=== PATIENT | female | born 2000 | race Caucasian/White ===

== ENCOUNTER 2025-06-07 11:52 | Observation (INO) | payer MEDICAID ==
[2025-06-07] MEDS ORDERED: PREN-96 PO (13:11)
--- NOTE | 2025-06-08 11:37 | DVHDS2 ---
Discharge Summary Date of Admission Jun 07, 2025 at 11:52 Date of Discharge: Jun 07, 2025 Admitting Diagnosis 37-5/7 week rule out ruptured membranes Wounds: None Labs/Diagnostic Data: Laboratory Results Test 06/07/25 12:25 Placental Alnqb-9-Bernsmxskxwgn Negative Brief Hx & Hospital Course: Patient NST BPP are reassuring no evidence of spontaneous rupture membranes Operations or Procedures NST BPP Condition at Discharge: Good Final Diagnosis/Problems List 37-5/7 not ruptured reassuring heart tones maternal condition. Discharge Disposition: Home Discharge Instruct/Medications Diet: Regular Activity: No Restrictions, As Tolerated Activity comment: Kick counts labor precautions Follow Up/Referral: Follow up as scheduled kick counts labor precautions Medications: Resume home meds Scheduled Vit W/ Ferrous Fumara ( One Daily), 1 TAB PO DAILY, (Reported) Discharge Statement: "Patient was advised to return to the ER or call 911 if any headaches, dizziness, shortness of breath, chest pain, abdominal pain, bleeding, fevers, or worsening of medical condition. Patient was counseled about treatment plan, medications, possible side effects, patientverbalized understanding. All questions were answered to the best of my ability. This discharge took greater then 30 minutes in planning, reviewing documentation, counseling the patient, and discussing with other team members." ASSESSMENT ASSESSMENT Assessment Visit Coding OBGYN Date of Service: Jun 07, 2025 Billing Provider: ANNA COLLIER DO [employer] Common Visit Codes: [id number] INP/OBS CARE(MOD), 95768-[id number] INP/OBS CARE(HIGH), 50778-WUU/OBS SAME DATE (LOW), 19937-HDY/OBS SAME DATE (MOD) [employer] Procedure Codes: 88007-06- NON-STRESS TEST ANNA COLLIER DO Jun 08, 2025 11:37
== END 2025-06-07 13:29 | disposition home or self-care (01) ==
LOC: LDRP 11:52
PROVIDERS: ADMIT Obstetrics & Gynecology; ATTEND Obstetrics & Gynecology
DX: O42.913 Preterm premature rupture of membranes, unspecified as to length of time between rupture and onset of labor, third trimester (principal); Z3A.37 37 weeks gestation of pregnancy; Z98.890 Other specified postprocedural states
CPT/HCPCS: 59025; 81002; 84112; 94760; G0378